=== PATIENT | male | born 1960 | race Caucasian/White ===

== ENCOUNTER 2017-07-19 11:31 | Inpatient (IN) | payer BC, OTHER ==
[2017-07-19] MEDS ORDERED: PHARMACY CONSULT - DOSE _____ XX SCH (12:57)
[2017-07-19] MEDS: NS 1000 ML 1,000 ML IV SCH (13:42)
[2017-07-19] MEDS: DILAUDID INJ IVP PRN ×3 (14:07→22:49)
[2017-07-19 14:18] LABS: BASOPHILS # (AUTO) 0.1 X10^3/uL (0.0-0.1); BASOPHILS % (AUTO) 0.9 % (0.2-1.0); EOSINOPHILS # (AUTO) 0.5 x10^3/uL (0.0-0.2); EOSINOPHILS % (AUTO) 4.8 % (0.9-2.9); HEMATOCRIT 45.3 % (42.0-54.0); HEMOGLOBIN 15.5 g/dL (13.5-18.0); LYMPHOCYTES # (AUTO) 2.4 X10^3/uL (1.3-2.9); LYMPHOCYTES % (AUTO) 24.4 % (21.0-51.0); MEAN CORPUSCULAR HEMOGLOBIN 30.6 pg (27.0-34.0); MEAN CORPUSCULAR HGB CONC 34.1 g/dL (33.0-35.0); MEAN CORPUSCULAR VOLUME 89.8 fL (80.0-100.0); MEAN PLATELET VOLUME 7.9 fL (7.4-11.0); MONOCYTES # (AUTO) 0.5 x10^3/uL (0.3-0.8); MONOCYTES % (AUTO) 5.5 % (0.0-13.0); NEUTROPHILS # (AUTO) 6.2 x10^3/uL (2.2-4.8); NEUTROPHILS % (AUTO) 64.4 % (42.0-75.0); PLATELET COUNT 296 X10^3/uL (150.0-450.0); RED BLOOD COUNT 5.04 X10^6/uL (4.7-6.0); RED CELL DISTRIBUTION WIDTH 13.5 % (11.6-16.5); WHITE BLOOD COUNT 9.6 X10^3/uL (3.6-10.0)
[2017-07-19 14:35] LABS: ALANINE AMINOTRANSFERASE 21 Units/L (12-78); ALBUMIN 3.4 g/dL (3.4-5.0); ALKALINE PHOSPHATASE 95 Units/L (46-116); ASPARTATE AMINO TRANSFERASE 18 Units/L (15-37); BLOOD UREA NITROGEN 11 mg/dL (7-18); CALCIUM 8.9 mg/dL (8.5-10.1); CARBON DIOXIDE 27.4 mmol/L (21-32); CHLORIDE 106 mmol/L (98-107); CREATININE 1.34 mg/dL (0.70-1.30); SODIUM 139 mmol/L (136-145); TOTAL PROTEIN 7.5 g/dL (6.4-8.2); eGFR BLACK RACES > 60 (>60); eGFR NON BLACK RACES 58 (>60)
[2017-07-19 15:15] VITALS: BMI 28.8
[2017-07-19] MEDS ORDERED: FLUVIRIN IM ONE (15:15)
[2017-07-19] MEDS: TORADOL 30 MG VIAL IVP PRN (17:08)
[2017-07-19] MEDS: NICOTINE PATCH TD SCH (17:10)
--- NOTE | 2017-07-19 18:16 | VAS ---
HISTORY: Left lower extremity cellulitis and pain. History of previous pulmonary emboli. IVC filte r. Study: Bilateral lower extremity venous vascular examination: Multiplanar ultrasonographic examinat ion of the venous system of both lower extremities was performed using color, grayscale Doppler with augmentation and compression techniques. Comparison: None Findings: The common femoral veins, superficial femoral veins and popliteal veins are widely patent and show no intraluminal filling defects. The vessels compress easily and show normal phasic flow and augment w ith flexion of the foot. IMPRESSION: 1. No evidence of deep venous thrombosis involving either lower extremity. Reported By:
[2017-07-19] MEDS: VANCOMYCIN 1 GM PREMIX (ADDVANTAGE) 250 ML IV SCH (21:04)
[2017-07-19] MEDS ORDERED: PATIENT'S HOME MEDICATION (Alprazolam [Xanax 1 Mg] 1 TAB) PO PRN (21:43)
[2017-07-19] MEDS ORDERED: PANTOPRAZOLE SODIUM 40 MG PO SCH (21:45)
[2017-07-19] MEDS: XANAX PO PRN (22:53)
[2017-07-20] MEDS: TORADOL 30 MG VIAL IVP PRN ×2 (05:11→15:54)
[2017-07-20] MEDS: NS 1000 ML 1,000 ML IV SCH ×2 (05:14→18:10)
[2017-07-20 06:06] LABS: BASOPHILS % (AUTO) 0.5 % (0.2-1.0); EOSINOPHILS # (AUTO) 0.6 x10^3/uL (0.0-0.2); EOSINOPHILS % (AUTO) 7.4 % (0.9-2.9); HEMATOCRIT 41.1 % (42.0-54.0); LYMPHOCYTES # (AUTO) 2.2 X10^3/uL (1.3-2.9); LYMPHOCYTES % (AUTO) 27.4 % (21.0-51.0); MEAN CORPUSCULAR HEMOGLOBIN 30.6 pg (27.0-34.0); MEAN CORPUSCULAR VOLUME 89.8 fL (80.0-100.0); MEAN PLATELET VOLUME 8.4 fL (7.4-11.0); MONOCYTES # (AUTO) 0.7 x10^3/uL (0.3-0.8); MONOCYTES % (AUTO) 8.5 % (0.0-13.0); NEUTROPHILS # (AUTO) 4.6 x10^3/uL (2.2-4.8); NEUTROPHILS % (AUTO) 56.2 % (42.0-75.0); PLATELET COUNT 277 X10^3/uL (150.0-450.0); RED BLOOD COUNT 4.57 X10^6/uL (4.7-6.0); RED CELL DISTRIBUTION WIDTH 13.4 % (11.6-16.5); WHITE BLOOD COUNT 8.2 X10^3/uL (3.6-10.0)
[2017-07-20 06:07] LABS: ALANINE AMINOTRANSFERASE 17 Units/L (12-78); ALBUMIN 2.9 g/dL (3.4-5.0); ALKALINE PHOSPHATASE 77 Units/L (46-116); ASPARTATE AMINO TRANSFERASE 19 Units/L (15-37); BLOOD UREA NITROGEN 15 mg/dL (7-18); CALCIUM 8.6 mg/dL (8.5-10.1); CARBON DIOXIDE 26.2 mmol/L (21-32); CHLORIDE 105 mmol/L (98-107); COR CA(FOR HYPOALB) 9.5 mg/dL (8.5-10.1); CREATININE 1.63 mg/dL (0.70-1.30); SODIUM 137 mmol/L (136-145); eGFR BLACK RACES 56 (>60); eGFR NON BLACK RACES 46 (>60)
[2017-07-20 06:18] LABS: TOTAL PROTEIN 6.6 g/dL (6.4-8.2)
[2017-07-20] MEDS: DILAUDID INJ IVP PRN ×4 (08:48→22:40)
[2017-07-20] MEDS: PROTONIX TAB 40 MG PO SCH (08:48)
[2017-07-20] MEDS: NORVASC TAB 10 MG PO SCH (08:48)
[2017-07-20] MEDS: FOLIC ACID TAB 1 MG PO SCH (08:48)
[2017-07-20] MEDS: NICOTINE PATCH TD SCH (08:49)
[2017-07-20] MEDS: NEURONTIN CAP 300 MG PO SCH ×2 (08:59→20:30)
[2017-07-20] MEDS: VANCOMYCIN 1 GM PREMIX (ADDVANTAGE) 250 ML IV SCH ×2 (08:59→20:31)
[2017-07-20] MEDS: PHENERGAN INJ 25 MG IV PRN ×2 (10:32→20:31)
[2017-07-20] MEDS: XANAX PO PRN (13:15)
[2017-07-20] MEDS: SOMA TAB 350 MG PO PRN (15:59)
[2017-07-20] MEDS: PEPCID TAB 20 MG PO SCH (20:30)
[2017-07-20] MEDS: LIPITOR TAB 40 MG PO SCH (20:30)
[2017-07-20] MEDS: DESYREL PO SCH (20:31)
[2017-07-20] MEDS ORDERED: PATIENT'S HOME MEDICATION (Trazodone Hcl [Trazodone Hcl] 150 MG) PO SCH (21:00)
[2017-07-21] MEDS: DILAUDID INJ IVP PRN ×5 (03:19→21:14)
[2017-07-21] MEDS: NS 1000 ML 1,000 ML IV SCH ×2 (05:48→17:18)
[2017-07-21] MEDS: XANAX PO PRN (07:02)
[2017-07-21] MEDS: NICOTINE PATCH TD SCH (08:13)
[2017-07-21] MEDS: PROTONIX TAB 40 MG PO SCH (08:13)
[2017-07-21] MEDS: SOMA TAB 350 MG PO PRN ×2 (08:13→16:14)
[2017-07-21] MEDS: NORVASC TAB 10 MG PO SCH (08:13)
[2017-07-21] MEDS: NEURONTIN CAP 300 MG PO SCH ×2 (08:14→21:13)
[2017-07-21] MEDS: FOLIC ACID TAB 1 MG PO SCH (08:14)
[2017-07-21] MEDS: VANCOMYCIN 1 GM PREMIX (ADDVANTAGE) 250 ML IV SCH ×2 (08:14→22:20)
--- NOTE | 2017-07-21 08:32 | DR.H&P ---
H&P - History & Physical for Day of: H&P Date: 07/19/17 - Chief Complaint Chief Complaint: LEFT LOWER EXTREMITY CELLULITIS - Allergies Allergies/Adverse Reactions: Allergies Allergy/AdvReac Type Severity Reaction Status Date / Time codeine Allergy Verified 07/19/17 14:54 - History of Present Illness History of Present Illness: is a 57 year old patient of ours who was is a direct admission from our office. He presented to our office today with complaints of redness and severe pain to the left lower extremity. On examination, left lower extremity is noted with 2+ pitting edema, two draining wounds, and moderate erythema. Patient denies a recent injury to the extremity. We planned to admit patient for further treatment and evaluation of cellulitis and rule out DVT. He was started on Normal saline at KVO, Vancomycin 1gm IV Q12H, Dilaudid 2-4mg IVP Q4H PRN severe pain, Toradol 30 MG Q6H PRN pain. On admission, A CBC, CMP, and bilateral venous doppler were obtained. Abnormal lab values include the following: creatinine 1.34, GFR 58, A/G ratio 0.8. A wound culture was obtained and results are pending. Gram stain reports growth of Gram Positive Cocci. Venous doppler reported no evidence of deep venous thrombosis involving either lower extremity. We plan to follow up with AM labs and continue to monitor patient. - Past Medical History Past Medical History: Hypertension, Depression, Anxiety, GERD, Arthritis Additional Medical History: Hx of DVT/PE, Hx GI Ulcer - Past Surgical History Surgical History: Ortho Surgery Additional Surgical History: Left and Right Shoulder, Back, Left Leg, IVC Filter Left Leg - Family History Family Medical History: Diabetes Mellitus, [place], Coronary Artery Disease - Social History Does patient currently use any type of tobacco product: Yes Have you used tobacco products in the last 12 months: Yes Type of Tobacco Use: Cigarettes Does any household member use tobacco: Yes Alcohol Use: Occasionally Drug Use: None - Medications Home Medications: Alprazolam [Xanax 1 mg] 1 tab PO BID PRN 07/19/17 [History Confirmed 07/19/17] Amlodipine Besylate 10 mg PO DAILY 07/19/17 [History Confirmed 07/19/17] Atorvastatin Calcium 40 mg PO HS 07/19/17 [History Confirmed 07/19/17] Folic Acid 1 mg PO DAILY 07/19/17 [History Confirmed 07/19/17] Gabapentin [Neurontin Cap 300 mg] 300 mg PO BID 07/19/17 [History Confirmed 11/03] Phentermine HCl [Adipex-P] 37.5 mg PO DAILY 07/19/17 [History Confirmed 07/19/17 ] Sildenafil Citrate [Viagra] 100 mg PO . DIRECTED PRN 07/19/17 [History Confirmed 07/19/17] Trazodone HCl 150 mg PO HS 07/19/17 [History Confirmed 07/19/17] - Review of Systems Constitutional: No Symptoms Reported. denies: Fever, Chills, Weakness Eyes: No Symptoms Reported. denies: Vision Change, Conjunctivae Inflammation, Eyelid Inflammation, Redness ENT: No Symptoms Reported. denies: Ear Pain, Ear Discharge, Nose Discharge, Nose Congestion, Mouth Swelling, Throat Pain, Throat Swelling Respiratory: No Symptoms Reported. denies: Cough, Shortness of Breath, Hemoptysis, Sputum, Wheezing Cardiovascular: Edema. denies: Chest Pain, Palpitations, Paroxysmal Noc. Dyspnea, Light Headedness Gastrointestinal: No Symptoms Reported. denies: Nausea, Vomiting, Abdominal Pain, Diarrhea, Constipation, Melena, Hematochezia Genitourinary: No Symptoms Reported Musculoskeletal: Leg Pain (LEFT LEG PAIN ) Skin: Wound (LEFT LEG OPEN WOUND, ERRYTHEMA ) Neurological: No Symptoms Reported. denies: Weakness, Confusion, Seizures - Physical Exam Vital Signs: Temperature 97.8 F Pulse Rate [Right Radial] 77 Respiratory Rate 20 Blood Pressure [Right Arm] 136/80 Blood Pressure [Left Arm] 140/85 Blood Pressure 130/83 O2 Sat by Pulse Oximetry 99 Oriented: Normal Eyes: Normal. negative: Blurred Vision, Diplopia, Discharge, Photophobia Ear: Normal. negative: Abrasion, Laceration Nose: Normal Throat: Normal Respiratory: Clear Throughout Cardiovascular: Edema. negative: Murmur : Normal. negative: Dysuria, Hematuria, Testicular Pain, Bleeding Auscultation: Bowel Sounds: Normal Palpation: Normal Tenderness: Normal. negative: Rebound, Guarding, Rigidity Skin: Red, Tender (LEFT LEG OPEN WOUND, EDEMA, ERRYTHEMA ), Wound Musculoskeletal: Left, Leg, Swelling, Tender Psychiatric: Normal Mood Description: Calm Affect: Normal Speech Pattern: Clear - Assessment/Plan (1) Left leg cellulitis Status: Acute Plan: WOUND CULTURE, VANCOMYCIN 1GM IV BID, WOUND CARE, CHECK VENOUS DOPPLER TO R/O DVT, CONTINUE TO MONITOR
[2017-07-21 08:45] LABS: BASOPHILS # (AUTO) 0.1 X10^3/uL (0.0-0.1); BASOPHILS % (AUTO) 0.9 % (0.2-1.0); EOSINOPHILS # (AUTO) 0.5 x10^3/uL (0.0-0.2); EOSINOPHILS % (AUTO) 5.8 % (0.9-2.9); HEMATOCRIT 46.6 % (42.0-54.0); HEMOGLOBIN 15.5 g/dL (13.5-18.0); LYMPHOCYTES % (AUTO) 23.4 % (21.0-51.0); MEAN CORPUSCULAR HEMOGLOBIN 30.1 pg (27.0-34.0); MEAN CORPUSCULAR HGB CONC 33.2 g/dL (33.0-35.0); MEAN CORPUSCULAR VOLUME 90.7 fL (80.0-100.0); MEAN PLATELET VOLUME 7.8 fL (7.4-11.0); MONOCYTES # (AUTO) 0.5 x10^3/uL (0.3-0.8); MONOCYTES % (AUTO) 5.8 % (0.0-13.0); NEUTROPHILS # (AUTO) 5.6 x10^3/uL (2.2-4.8); NEUTROPHILS % (AUTO) 64.1 % (42.0-75.0); PLATELET COUNT 267 X10^3/uL (150.0-450.0); RED BLOOD COUNT 5.14 X10^6/uL (4.7-6.0); RED CELL DISTRIBUTION WIDTH 13.7 % (11.6-16.5); WHITE BLOOD COUNT 8.7 X10^3/uL (3.6-10.0)
[2017-07-21 08:57] LABS: CREATININE 1.35 mg/dL (0.70-1.30); VANCOMYCIN,TROUGH 12.4 ug/mL (15-20)
[2017-07-21 08:59] LABS: ALANINE AMINOTRANSFERASE 20 Units/L (12-78); ALKALINE PHOSPHATASE 95 Units/L (46-116); ASPARTATE AMINO TRANSFERASE 18 Units/L (15-37); BLOOD UREA NITROGEN 18 mg/dL (7-18); CALCIUM 8.6 mg/dL (8.5-10.1); CARBON DIOXIDE 26.3 mmol/L (21-32); CHLORIDE 105 mmol/L (98-107); COR CA(FOR HYPOALB) 9.4 mg/dL (8.5-10.1); COR NA(FOR HYPERGLY) 140 mmol/L (136-145); CREATININE 1.36 mg/dL (0.70-1.30); SODIUM 140 mmol/L (136-145); TOTAL PROTEIN 6.7 g/dL (6.4-8.2); eGFR BLACK RACES > 60 (>60); eGFR NON BLACK RACES 57 (>60)
[2017-07-21] MEDS: PHENERGAN INJ 25 MG IV PRN ×3 (09:00→21:13)
[2017-07-21] MEDS: DESYREL PO SCH (21:13)
[2017-07-21] MEDS: LIPITOR TAB 40 MG PO SCH (21:14)
[2017-07-21] MEDS: PEPCID TAB 20 MG PO SCH (21:14)
[2017-07-22] MEDS: DILAUDID INJ IVP PRN ×4 (02:23→20:50)
[2017-07-22 06:10] LABS: BASOPHILS % (AUTO) 0.5 % (0.2-1.0); EOSINOPHILS # (AUTO) 0.6 x10^3/uL (0.0-0.2); EOSINOPHILS % (AUTO) 6.2 % (0.9-2.9); HEMATOCRIT 45.7 % (42.0-54.0); HEMOGLOBIN 15.5 g/dL (13.5-18.0); LYMPHOCYTES # (AUTO) 2.2 X10^3/uL (1.3-2.9); LYMPHOCYTES % (AUTO) 23.6 % (21.0-51.0); MEAN CORPUSCULAR HEMOGLOBIN 30.6 pg (27.0-34.0); MEAN CORPUSCULAR VOLUME 90.2 fL (80.0-100.0); MEAN PLATELET VOLUME 7.9 fL (7.4-11.0); MONOCYTES # (AUTO) 0.8 x10^3/uL (0.3-0.8); MONOCYTES % (AUTO) 9.1 % (0.0-13.0); NEUTROPHILS # (AUTO) 5.7 x10^3/uL (2.2-4.8); NEUTROPHILS % (AUTO) 60.6 % (42.0-75.0); PLATELET COUNT 276 X10^3/uL (150.0-450.0); RED BLOOD COUNT 5.07 X10^6/uL (4.7-6.0); RED CELL DISTRIBUTION WIDTH 13.3 % (11.6-16.5); WHITE BLOOD COUNT 9.3 X10^3/uL (3.6-10.0)
[2017-07-22 06:24] LABS: ALANINE AMINOTRANSFERASE 26 Units/L (12-78); ALBUMIN 3.2 g/dL (3.4-5.0); ALKALINE PHOSPHATASE 100 Units/L (46-116); ASPARTATE AMINO TRANSFERASE 22 Units/L (15-37); BLOOD UREA NITROGEN 15 mg/dL (7-18); CALCIUM 8.5 mg/dL (8.5-10.1); CARBON DIOXIDE 26.2 mmol/L (21-32); CHLORIDE 105 mmol/L (98-107); COR CA(FOR HYPOALB) 9.1 mg/dL (8.5-10.1); CREATININE 1.32 mg/dL (0.70-1.30); SODIUM 139 mmol/L (136-145); eGFR BLACK RACES > 60 (>60); eGFR NON BLACK RACES 59 (>60)
[2017-07-22] MEDS: NS 1000 ML 1,000 ML IV SCH ×2 (06:38→20:52)
[2017-07-22] MEDS ORDERED: MAG-OX TAB PO PRN (07:47)
[2017-07-22] MEDS ORDERED: MAGNESIUM SULFATE 1 GM/100 mL PREMIX 1 GM/100 ML BAG IV PRN (07:47)
[2017-07-22] MEDS ORDERED: K-LYTE EFFERVESCENT PO PRN (07:47)
[2017-07-22] MEDS ORDERED: K-RIDER 10 MEQ/NS 100 ML 10 MEQ/100 ML BAG IV PRN (07:47)
[2017-07-22] MEDS ORDERED: NEURONTIN CAP 100 MG PO ONE (08:11)
[2017-07-22] MEDS ORDERED: COLACE CAP 100 MG PO PRN (08:56)
[2017-07-22] MEDS ORDERED: MILK OF MAGNESIA PO PRN (08:56)
[2017-07-22] MEDS: NICOTINE PATCH TD SCH (08:56)
[2017-07-22] MEDS: PROTONIX TAB 40 MG PO SCH (08:58)
[2017-07-22] MEDS: NEURONTIN CAP 300 MG PO SCH ×2 (08:58→20:49)
[2017-07-22] MEDS: NORVASC TAB 10 MG PO SCH (08:58)
[2017-07-22] MEDS: VANCOMYCIN 1 GM PREMIX (ADDVANTAGE) 250 ML IV SCH ×2 (08:59→20:51)
[2017-07-22] MEDS: PHENERGAN INJ 25 MG IV PRN ×2 (09:05→20:51)
[2017-07-22] MEDS: FOLIC ACID TAB 1 MG PO SCH (09:06)
[2017-07-22] MEDS: SOMA TAB 350 MG PO PRN ×2 (11:26→20:49)
[2017-07-22] MEDS: XANAX PO PRN ×2 (11:26→23:22)
[2017-07-22] MEDS: PEPCID TAB 20 MG PO SCH (20:49)
[2017-07-22] MEDS: LIPITOR TAB 40 MG PO SCH (20:50)
[2017-07-22] MEDS: DESYREL PO SCH (20:50)
[2017-07-22] MEDS: TORADOL 30 MG VIAL IVP PRN (23:22)
[2017-07-23 05:25] LABS: BASOPHILS # (AUTO) 0.1 X10^3/uL (0.0-0.1); BASOPHILS % (AUTO) 0.7 % (0.2-1.0); EOSINOPHILS # (AUTO) 0.6 x10^3/uL (0.0-0.2); EOSINOPHILS % (AUTO) 7.6 % (0.9-2.9); HEMATOCRIT 41.1 % (42.0-54.0); LYMPHOCYTES # (AUTO) 2.1 X10^3/uL (1.3-2.9); LYMPHOCYTES % (AUTO) 28.2 % (21.0-51.0); MEAN CORPUSCULAR HEMOGLOBIN 30.3 pg (27.0-34.0); MEAN CORPUSCULAR VOLUME 89.2 fL (80.0-100.0); MEAN PLATELET VOLUME 8.4 fL (7.4-11.0); MONOCYTES # (AUTO) 0.8 x10^3/uL (0.3-0.8); MONOCYTES % (AUTO) 9.9 % (0.0-13.0); NEUTROPHILS # (AUTO) 4.1 x10^3/uL (2.2-4.8); NEUTROPHILS % (AUTO) 53.6 % (42.0-75.0); PLATELET COUNT 263 X10^3/uL (150.0-450.0); RED BLOOD COUNT 4.61 X10^6/uL (4.7-6.0); WHITE BLOOD COUNT 7.6 X10^3/uL (3.6-10.0)
[2017-07-23 05:34] LABS: ALANINE AMINOTRANSFERASE 33 Units/L (12-78); ALBUMIN 2.7 g/dL (3.4-5.0); ALKALINE PHOSPHATASE 90 Units/L (46-116); ASPARTATE AMINO TRANSFERASE 27 Units/L (15-37); BLOOD UREA NITROGEN 16 mg/dL (7-18); CALCIUM 8.5 mg/dL (8.5-10.1); CARBON DIOXIDE 26.8 mmol/L (21-32); CHLORIDE 106 mmol/L (98-107); COR CA(FOR HYPOALB) 9.5 mg/dL (8.5-10.1); CREATININE 1.38 mg/dL (0.70-1.30); MAGNESIUM 1.9 mg/dL (1.7-2.9); SODIUM 139 mmol/L (136-145); TOTAL PROTEIN 6.1 g/dL (6.4-8.2); eGFR BLACK RACES > 60 (>60); eGFR NON BLACK RACES 56 (>60)
[2017-07-23 08:25] LABS: CREATININE 1.35 mg/dL (0.70-1.30); VANCOMYCIN,TROUGH 15.5 ug/mL (15-20)
[2017-07-23] MEDS: FOLIC ACID TAB 1 MG PO SCH (09:10)
[2017-07-23] MEDS: NORVASC TAB 10 MG PO SCH (09:10)
[2017-07-23] MEDS: NEURONTIN CAP 300 MG PO SCH (09:10)
[2017-07-23] MEDS: PROTONIX TAB 40 MG PO SCH (09:10)
[2017-07-23] MEDS: NICOTINE PATCH TD SCH (09:12)
--- NOTE | 2017-07-23 10:03 | PCM.PROG ---
Progress Note - Progress Note for Day of Date: 07/20/17 - Past Medical Family Social History Past Med/Fam/Surg Hx: No changes since H&P Allergies: Allergies codeine Allergy (Verified 07/19/17 14:54) - Review of Systems ROS: No change since H&P - Vital Signs and I&O's Vital Signs: Temperature 97.8 F Pulse Rate [Right Radial] 65 Respiratory Rate 16 Blood Pressure [Right Arm] 153/97 Blood Pressure [Left Arm] 140/85 Blood Pressure 130/83 O2 Sat by Pulse Oximetry 94 Intake and Output: Intake & Output 07/20/17 07/21/17 07/22/17 07/23/17 12:59 12:59 11:59 11:59 Intake Total 3290 Output Total Balance 3290 - Physical Exam Oriented: Normal Eyes: Normal Ear: Normal Nose: Normal Throat: Normal Respiratory: Normal Cardiovascular: Normal : Normal Auscultation: Bowel Sounds: Normal Palpation: Normal Tenderness: Normal Skin: Red, Tender (LEFT LOWER LEG WITH OPEN WOUND, EDEMA, AND ERRYTHEMA), Wound Musculoskeletal: Left, Leg, Swelling, Tender Psychiatric: Normal Mood Description: Calm Affect: Normal Speech Pattern: Clear, Appropriate - Laboratory and Diagnostics Result Diagrams: 07/23/17 04:25 07/23/17 08:05 Labs: 07/19/17 14:10 Leg - Left Gram Stain - Final 07/19/17 14:10 Leg - Left Wound Culture - Final Staphylococcus Aureus 07/19/17 14:02 Blood Blood Culture - Preliminary 07/19/17 13:56 Blood Blood Culture - Preliminary Laboratory WBC 7.6 X10^3/uL (3.6-10.0) 07/23/17 04:25 RBC 4.61 X10^6/uL (4.7-6.0) L 07/23/17 04:25 Hgb 14.0 g/dL (13.5-18.0) 07/23/17 04:25 Hct 41.1 % (42.0-54.0) L 07/23/17 04:25 MCV 89.2 fL (80.0-100.0) 07/23/17 04:25 MCH 30.3 pg (27.0-34.0) 07/23/17 04:25 MCHC 34.0 g/dL (33.0-35.0) 07/23/17 04:25 RDW 13.0 % (11.6-16.5) 07/23/17 04:25 Plt Count 263 X10^3/uL (150.0-450.0) 07/23/17 04:25 MPV 8.4 fL (7.4-11.0) 07/23/17 04:25 Neut % 53.6 % (42.0-75.0) 07/23/17 04:25 Lymph % 28.2 % (21.0-51.0) 07/23/17 04:25 Juncos % 9.9 % (0.0-13.0) 07/23/17 04:25 Eos % 7.6 % (0.9-2.9) H 07/23/17 04:25 Baso % 0.7 % (0.2-1.0) 07/23/17 04:25 Neut # 4.1 x10^3/uL (2.2-4.8) 07/23/17 04:25 Lymph # 2.1 X10^3/uL (1.3-2.9) 07/23/17 04:25 Juncos # 0.8 x10^3/uL (0.3-0.8) 07/23/17 04:25 Eos # 0.6 x10^3/uL (0.0-0.2) H 07/23/17 04:25 Baso # 0.1 X10^3/uL (0.0-0.1) 07/23/17 04:25 Absolute Nucleated RBC 0.0 /100WBC 07/23/17 04:25 Sodium 139 mmol/L (136-145) 07/23/17 04:25 Corrected Sodium TNP 07/23/17 04:25 Potassium 4.0 mmol/L (3.5-5.1) 07/23/17 04:25 Chloride 106 mmol/L (98-107) 07/23/17 04:25 Carbon Dioxide 26.8 mmol/L (21-32) 07/23/17 04:25 BUN 16 mg/dL (7-18) 07/23/17 04:25 Creatinine 1.35 mg/dL (0.70-1.30) H 07/23/17 08:05 Est GFR (MDRD) Af Amer > 60 (>60) 07/23/17 04:25 Est GFR (MDRD) Non-Af 56 (>60) L 07/23/17 04:25 Glucose 106 mg/dL (65-99) H 07/23/17 04:25 Calcium 8.5 mg/dL (8.5-10.1) 07/23/17 04:25 Corrected Calcium 9.5 mg/dL (8.5-10.1) 07/23/17 04:25 Magnesium 1.9 mg/dL (1.7-2.9) 07/23/17 04:25 Total Bilirubin 0.20 mg/dL (0.2-1.0) 07/23/17 04:25 AST 27 Units/L (15-37) 07/23/17 04:25 ALT 33 Units/L (12-78) 07/23/17 04:25 Alkaline Phosphatase 90 Units/L (46-116) 07/23/17 04:25 Total Protein 6.1 g/dL (6.4-8.2) L 07/23/17 04:25 Albumin 2.7 g/dL (3.4-5.0) L 07/23/17 04:25 Globulin 3.4 g/dL (2.5-4.5) 07/23/17 04:25 Albumin/Globulin Ratio 0.8 Ratio (1.1-2.1) L 07/23/17 04:25 Vancomycin Trough 15.5 ug/mL (15-20) 07/23/17 08:05 - Plan (1) Left leg cellulitis Status: Acute Plan: CONTINUE VANCOMYCIN 1GM IV BID, CONTINUE WOUND CARE, CONTINUE TO MONITOR (2) Tobacco dependence syndrome Status: Chronic Plan: NICOTOINE PATCH DAILY, CONTINUE TO MONITOR (3) Essential hypertension Status: Chronic Plan: CONTINUE NORVASC, CONTINUE TO MONITOR (4) Gastroesophageal reflux disease Status: Chronic Plan: CONTINUE PEPCID, CONTINUE PROTONIX, CONTINUE TO MONITOR (5) Generalized anxiety disorder Status: Chronic Plan: CONTINUE XANAX, CONTINUE TO MONITOR (6) Hyperlipidemia Status: Chronic Plan: CONTINUE LIPITOR, CONTINUE TO MONITOR
[2017-07-23] MEDS: VANCOMYCIN 1 GM PREMIX (ADDVANTAGE) 250 ML IV SCH (10:31)
[2017-07-23] MEDS: PHENERGAN INJ 25 MG IV PRN (10:37)
[2017-07-23] MEDS: DILAUDID INJ IVP PRN (10:39)
[2017-07-23 15:27] VITALS: BP 157/92
== END 2017-07-23 12:45 | disposition home or self-care (01) | DRG 603 ==
LOC: MED/SURG 11:31 → OBSVTOIN 07-21 16:00
PROVIDERS: ADMIT Internal Medicine; ATTEND Internal Medicine
PROC: 3E0234Z Introduction of Serum, Toxoid and Vaccine into Muscle, Percutaneous Approach (ICD-10-PCS; principal; 2017-07-19)
DX: L03.116 Cellulitis of left lower limb (principal); R60.0 Localized edema; I10 Essential (primary) hypertension; F41.8 Other specified anxiety disorders; K21.9 Gastro-esophageal reflux disease without esophagitis; M13.89 Other specified arthritis, multiple sites; Z72.0 Tobacco use; E78.2 Mixed hyperlipidemia; F17.200 Nicotine dependence, unspecified, uncomplicated; B95.62 Methicillin resistant Staphylococcus aureus infection as the cause of diseases classified elsewhere
CPT/HCPCS: 36415; 80053; 80202; 82565; 83735; 85025; 87040; 87070; 87075; 87077; 87186; 87205; 90686; 93970; 99231; A4222; G0378; J1170; J1885; J2550; J3370

== ENCOUNTER 2025-04-07 07:58 | Observation (INO) ==
[2025-04-07 08:34] LABS: MEAN PLATELET VOLUME 7.5 fL (7.4-11.0); RED CELL DISTRIBUTION WIDTH 14.0 % (11.6-16.5)
--- NOTE | 2025-04-07 08:34 | EKG ---
Test Reason : chest pain Blood Pressure : */* mmHG Vent. Rate : 59 BPM Atrial Rate : 59 BPM P-R Int : 144 ms QRS Dur : 86 ms QT Int : 438 ms P-R-T Axes : 26 35 52 degrees QTc Int : 433 ms Sinus bradycardia with sinus arrhythmia prominent voltage Otherwise normal ECG No previous ECGs available Confirmed by Cam Seaman MD ([id number]) on 04/07/2025 10:36:28 AM Referred By: Confirmed By: Cam Seaman MD
[2025-04-07 08:40] LABS: INR 1.10 (0.8-1.3)
[2025-04-07 08:47] LABS: COR CA(FOR HYPOALB) 10.6 mg/dL (8.5-10.1); COR NA(FOR HYPERGLY) 136 mmol/L (136-145); CREATININE 1.35 mg/dL (0.70-1.30); eGFR NON BLACK RACES 56 (>60)
[2025-04-07] MEDS: MAG-OX TAB PO ONE (09:15)
--- NOTE | 2025-04-07 09:40 | CT ---
EXAM: CT chest without contrast HISTORY: Chest pain, shortness of breath, smoker TECHNIQUE: Axial noncontrast images with coronal and sagittal reformats. Dose reduction procedures were used with mA/kv adjusted for body size. This examination is limited due to the lack of intravenous contrast. The examination was performed unenhanced at the sole direction of the ordering caregiver. Radiology was afforded no input into the method of performance of this examination. COMPARISON: No prior chest CT; no screening plain chest x-ray obtained. The reason for this omission is unclear. FINDINGS: Abnormal lymphadenopathy is incidentally noted underlying the right sternocleidomastoid muscle. Nodes measure 1.5 by 0.9 cm and 1.3 by 0.94 cm. These could be reactive, infectious, granulomatous, or neoplastic in origin. Examination of the mediastinum demonstrated no evidence for abnormal mediastinal or abnormal hilar adenopathy but only to the limitations of an unenhanced examination. There is mild dilatation of the ascending thoracic aorta maximum AP diameter 4 cm, maximum transverse diameter 4.1 cm. Calcific atherosclerotic changes present in the arch. Arch and descending aorta are normal in caliber. No pleural effusions are identified. No chest wall or axillary abnormality is identified. Those portions of the upper abdominal organs visualized appeared within normal limits to the limitations of an unenhanced examination with the exception of a 2.5 mm nonobstructing right upper pole renal calculus and a very large partially visualized cystic lesion in the left upper quadrant measuring 12 x 13.4 cm. This may represent a very large benign renal cyst however it was only partially visualized. CAVAL FILTER. There is a 50% compression fracture of T6 age indeterminate. There is a mild central compression fracture the superior endplate of T11 of indeterminate age and possibly related to some benign hemangiomatous change in the vertebral body. There is a question of some small lytic lesions in C7, T1 and T2. Findings could indicate metastatic disease or possibly multiple myeloma. Correlation with nuclear medicine bone scan is recommended as is serum protein electrophoresis. Examination of the lung forrester demonstrated pleural-parenchymal thickening in the right lung apex with some blebs present. Lungs are mildly hyperinflated. No alveolar infiltrates, areas of consolidation, peribronchial thickening, or bronchiectasis identified. Best visualized on axial series 3, image 46 and coronal series 6, image 11 is a 7.6 x 8.1 x 5.5 mm noncalcified left upper lobe pulmonary nodule. This could be granulomatous or neoplastic in origin. PET-CT would be of further diagnostic value in excluding malignancy however if PET-CT is negative for malignancy close CT follow-up in 4-6 months will be required as this nodule is at the lower limits for detection with PET. No other noncalcified pulmonary nodules of significance identified. IMPRESSION: Lungs are mildly hyperinflated but without acute pulmonary infiltrates 7.6 x 8.1 x 5.5 mm left upper lobe pulmonary nodule. Neoplasm must be excluded. PET-CT would be of further diagnostic value. However, it should be noted that if PET-CT is negative for malignancy then close CT follow-up with a repeat CT in 4-6 months is recommended as this nodule is at the lower limits for detection with PET-CT. Pulmonary consultation would seem indicated. Mild dilatation of the ascending thoracic aorta maximum AP diameter 4 cm, maximum transverse diameter 4.2 cm Questionable tiny lytic lesions in C7 T1 and T2 for which further evaluation with nuclear medicine bone scan to screen for metastatic disease and serum protein electrophoresis discrete for multiple myeloma should be considered. 2.5 mm nonobstructing right upper pole renal calculus Large left upper quadrant partially visualized cystic lesion possibly a large benign renal cyst. Other etiologies not excluded. Incidental note is made of abnormal mildly enlarged lymph nodes underlying the right sternocleidomastoid muscle in the lower neck. These could be reactive, infectious, granulomatous or neoplastic in origin. THIS IS AN ELECTRONICALLY VERIFIED FINAL REPORT 04/07/2025 9:37 AM - Electronically signed by Igor Tripp MD
[2025-04-07] MEDS: LASIX IVP ONE (10:38)
--- NOTE | 2025-04-07 10:58 | DR.GENAD ---
HPI Time Seen Time Seen by Provider: 04/07/25 08:05 PCP Primary Care Physician: andrea HPI Comment HPI Comment: Patient with complaint of weakness, chest pain and dyspnea on exertion over the last couple of weeks. Patient states he also has had an 8 pound weight loss. Patient has difficulty laying flat on his back because he gets more short of breath. Patient states he talked to his PCP and they told him to come into the ER. Complaint/Symptoms Chief Complaint:: Patient states for the last couple of weeks he has had increase weakness and chest pain around the left breast that comes and goes when it comes it is a garcia pain that radiates into his back. Patient states in the past 2 wks he has lost 8lbs and is steady losing weight. Patient noted to have pain right now to the left chest wall. unable to lay flat without getting sob. COVID-19 Coronavirus risk:travel/contact w/high risk person: No Has patient experienced Coronavirus symptoms: No Source History Provided: Patient Mode of Arrival Mode of Arrival: Ambulatory Timing Onset of Chief Complaint: 04/07/25 PMH PMH Past Medical History: Yes Past Medical History: Anxiety, Arthritis, Depression, Dyslipidemia, GERD and Hypertension Past Surgical History: Yes Surgical History: Ortho Surgery Past Surgical History Comment: left leg, back sx Family History History of Family Medical Conditions: Yes Family Medical History: Diabetes Mellitus, [place] and Coronary Artery Disease Social History Does patient currently use any type of tobacco product: Yes Have you used tobacco products in the last 12 months: Yes Type of Tobacco Use: Cigarettes Does any household member use tobacco: Yes Alcohol Use: Occasionally Do you use any recreational Drugs:: No Lives With: Family Lives Where: Home Travel Risk Coronavirus risk:travel/contact w/high risk person: No Has patient experienced Coronavirus symptoms: No Infectious screening In the last 2 months have you had wt loss of >10#?: NO Have you had fever, night sweats or hemotysis?: No Have you traveled outside the country in the last 6 months?: No Isolation: Standard ROS Review of Systems Constitutional: No Symptoms Reported Eyes: No Symptoms Reported ENTM: No Symptoms Reported Respiratoy: See HPI and Short of Breath; negative Wheezing Cardiovascular: See HPI and Edema; negative Palpitations Gastrointestinal/Abdominal: No Symptoms Reported Genitourinary: No Symptoms Reported Neurological: No Symptoms Reported Musculoskeletal: No Symptoms Reported Integumentary: No Symptoms Reported Hematologic/Lymphatic: No Symptoms Reported Endocrine: No Symptoms Reported Psychiatric: No Symptoms Reported All Other Systems: Reviewed and Negative PE Vital Signs Vitals: Vital Signs Temperature 98.3 F Pulse Rate 67 Pulse Rate 57 Pulse Rate 59 Pulse Rate 59 Pulse Rate 63 Pulse Rate 54 Pulse Rate 54 Pulse Rate 55 Pulse Rate 49 Pulse Rate 56 Pulse Rate 59 Pulse Rate 66 Pulse Rate 67 Pulse Rate 78 Pulse Rate 74 Respiratory Rate 28 Respiratory Rate 19 Respiratory Rate 18 Respiratory Rate 33 Respiratory Rate 25 Respiratory Rate 20 Respiratory Rate 17 Respiratory Rate 12 Respiratory Rate 10 Respiratory Rate 14 Respiratory Rate 15 Respiratory Rate 20 Respiratory Rate 22 Blood Pressure 116/70 Blood Pressure 115/69 Blood Pressure 115/69 Blood Pressure 115/69 Blood Pressure 126/61 Blood Pressure 144/73 Blood Pressure 144/73 O2 Sat by Pulse Oximetry 100 O2 Sat by Pulse Oximetry 99 O2 Sat by Pulse Oximetry 99 O2 Sat by Pulse Oximetry 99 O2 Sat by Pulse Oximetry 98 O2 Sat by Pulse Oximetry 99 O2 Sat by Pulse Oximetry 98 O2 Sat by Pulse Oximetry 97 O2 Sat by Pulse Oximetry 98 O2 Sat by Pulse Oximetry 98 O2 Sat by Pulse Oximetry 98 O2 Sat by Pulse Oximetry 99 O2 Sat by Pulse Oximetry 99 O2 Sat by Pulse Oximetry 99 O2 Sat by Pulse Oximetry 99 General Limitations: No Limitations General Appearance: Alert and In No Apparent Distress Head Head Exam: Normal Inspection Eyes Eye exam: Normal Appearance ENT ENT Exam: Normal Exam External Ear Exam: Normal External Inspection TM/Canal Exam: Bilateral: Normal Nose Exam: Normal Nose Exam Mouth Exam: Normal Inspection Throat Exam: Normal Inspection Neck Neck Exam: Normal Inspection Chest Chest Inspection: Normal Inspection Respiratory Respiratory Exam: negative Respiratory Distress Respiratory Exam: Bilateral: Crackles (Mild on bases) Cardiovascular Cardiovascular Exam: Regular Rate and Normal Rhythm Abdominal Exam Abdominal Exam: Normal Inspection, Normal Bowel Sounds and Soft Extremities Extremities Exam: Normal Inspection Back Back Exam: Normal Inspection Neurologic Neurological Exam: Alert and Oriented X3 Psychiatric Psychiatric Exam: Normal Affect and Normal Mood Skin Skin Exam: Warm, Dry, Intact and Normal Color COURSE Treatment Treatment: Discussed results of workup with patient. Discussed CT results and likelihood of cancer with metastasis and the importance of patient following up with his PCP and possibly oncology for further workup. Patient does have some CHF and was given Lasix. Patient's O2 has been stable through the stay without needing oxygen. Given his weakness along with shortness of breath and CHF exacerbation we discussed admission to the hospital. Consultation Called: 10:57 Consultation Comments: Discussed case with Dr. Santos and she is agreeable to admission [facility]OR Labs Reviewed Laboratory Results Reviewed?: Yes 04/07/25 08:05 04/07/25 08:16 Laboratory: WBC 8.6 X10^3/uL (3.6-10.0) 04/07/25 08:05 RBC 4.50 X10^6/uL (4.7-6.0) L 04/07/25 08:05 Hgb 12.1 g/dL (13.5-18.0) L 04/07/25 08:05 Hct 36.7 % (42.0-54.0) L 04/07/25 08:05 MCV 81.6 fL (80.0-100.0) 04/07/25 08:05 MCH 27.0 pg (27.0-34.0) 04/07/25 08:05 MCHC 33.0 g/dL (33.0-35.0) 04/07/25 08:05 RDW 14.0 % (11.6-16.5) 04/07/25 08:05 Plt Count 387 X10^3/uL (150.0-450.0) 04/07/25 08:05 MPV 7.5 fL (7.4-11.0) 04/07/25 08:05 Neut % (Auto) 72.8 % (42.0-75.0) 04/07/25 08:05 Lymph % (Auto) 12.3 % (21.0-51.0) L 04/07/25 08:05 Bee % (Auto) 9.6 % (0.0-13.0) 04/07/25 08:05 Eos % (Auto) 2.2 % (0.9-2.9) 04/07/25 08:05 Baso % (Auto) 3.1 % (0.2-1.0) H 04/07/25 08:05 Neut # (Auto) 6.2 x10^3/uL (2.2-4.8) H 04/07/25 08:05 Lymph # (Auto) 1.1 X10^3/uL (1.3-2.9) L 04/07/25 08:05 Bee # (Auto) 0.8 x10^3/uL (0.3-0.8) 04/07/25 08:05 Eos # (Auto) 0.2 x10^3/uL (0.0-0.2) 04/07/25 08:05 Baso # (Auto) 0.3 X10^3/uL (0.0-0.1) H 04/07/25 08:05 Absolute Nucleated RBC 0.0 /100WBC 04/07/25 08:05 PT 14.4 SECONDS (11.8-14.3) 04/07/25 08:05 INR Target Range - 04/07/25 08:05 INR 1.10 (0.8-1.3) 04/07/25 08:05 APTT 37.6 SECONDS (22.9-36.5) H 04/07/25 08:05 PTT Comment - 04/07/25 08:05 Sodium 135 mmol/L (136-145) L 04/07/25 08:16 Corrected Sodium 136 mmol/L (136-145) 04/07/25 08:16 Potassium 3.7 mmol/L (3.5-5.1) 04/07/25 08:16 Chloride 100 mmol/L (98-107) 04/07/25 08:16 Carbon Dioxide 26.2 mmol/L (21-32) 04/07/25 08:16 BUN 12 mg/dL (7-18) 04/07/25 08:16 Creatinine 1.35 mg/dL (0.70-1.30) H 04/07/25 08:16 Est GFR (MDRD) Af Amer > 60 (>60) 04/07/25 08:16 Est GFR (MDRD) Non-Af 56 (>60) L 04/07/25 08:16 Glucose 140 mg/dL (65-99) H 04/07/25 08:16 Calcium 9.2 mg/dL (8.5-10.1) 04/07/25 08:16 Corrected Calcium 10.6 mg/dL (8.5-10.1) H 04/07/25 08:16 Magnesium 1.8 mg/dL (2.0-2.9) L 04/07/25 08:16 Total Bilirubin 0.50 mg/dL (0.2-1.0) 04/07/25 08:16 AST 19 Units/L (15-37) 04/07/25 08:16 ALT 15 Units/L (12-78) 04/07/25 08:16 Alkaline Phosphatase 161 Units/L (46-116) H 04/07/25 08:16 Creatine Kinase 49 Units/L (39-308) 04/07/25 08:16 Troponin I High Sens 4.8 ng/L (4.0-60.0) 04/07/25 10:05 B-Natriuretic Peptide 538 pg/mL (0-79) H 04/07/25 08:16 Total Protein 7.8 g/dL (6.4-8.2) 04/07/25 08:16 Albumin 2.3 g/dL (3.4-5.0) L 04/07/25 08:16 Globulin 5.5 g/dL (2.5-4.5) H 04/07/25 08:16 Albumin/Globulin Ratio 0.4 Ratio (1.1-2.1) L 04/07/25 08:16 Other Results Comments: Name: NANETTE TSANG [facility]#: [id number] : 1960 Sex: M Location: Order Number(s): [id number] Procedure(s):CHEST CT W/O CON Ordering Physician: Maninder Iniguez Primary Care: Damian Pan Service Date: 04/07/25 Service Time: 08 EXAM: CT chest without contrast HISTORY: Chest pain, shortness of breath, smoker TECHNIQUE: Axial noncontrast images with coronal and sagittal reformats. Dose reduction procedures were used with mA/kv adjusted for body size. This examination is limited due to the lack of intravenous contrast. The examination was performed unenhanced at the sole direction of the ordering caregiver. Radiology was afforded no input into the method of performance of this examination. COMPARISON: No prior chest CT; no screening plain chest x-ray obtained. The reason for this omission is unclear. FINDINGS: Abnormal lymphadenopathy is incidentally noted underlying the right sternocleidomastoid muscle. Nodes measure 1.5 by 0.9 cm and 1.3 by 0.94 cm. These could be reactive, infectious, granulomatous, or neoplastic in origin. Examination of the mediastinum demonstrated no evidence for abnormal mediastinal or abnormal hilar adenopathy but only to the limitations of an unenhanced examination. There is mild dilatation of the ascending thoracic aorta maximum AP diameter 4 cm, maximum transverse diameter 4.1 cm. Calcific atherosclerotic changes present in the arch. Arch and descending aorta are normal in caliber. No pleural effusions are identified. No chest wall or axillary abnormality is identified. Those portions of the upper abdominal organs visualized appeared within normal limits to the limitations of an unenhanced examination with the exception of a 2.5 mm nonobstructing right upper pole renal calculus and a very large partially visualized cystic lesion in the left upper quadrant measuring 12 x 13.4 cm. This may represent a very large benign renal cyst however it was only partially visualized. CAVAL FILTER. There is a 50% compression fracture of T6 age indeterminate. There is a mild central compression fracture the superior endplate of T11 of indeterminate age and possibly related to some benign hemangiomatous change in the vertebral body. There is a question of some small lytic lesions in C7, T1 and T2. Findings could indicate metastatic disease or possibly multiple myeloma. Correlation with nuclear medicine bone scan is recommended as is serum protein electrophoresis. Examination of the lung forrester demonstrated pleural-parenchymal thickening in the right lung apex with some blebs present. Lungs are mildly hyperinflated. No alveolar infiltrates, areas of consolidation, peribronchial thickening, or bronchiectasis identified. Best visualized on axial series 3, image 46 and coronal series 6, image 11 is a 7.6 x 8.1 x 5.5 mm noncalcified left upper lobe pulmonary nodule. This could be granulomatous or neoplastic in origin. PET-CT would be of further diagnostic value in excluding malignancy however if PET-CT is negative for malignancy close CT follow-up in 4-6 months will be required as this nodule is at the lower limits for detection with PET. No other noncalcified pulmonary nodules of significance identified. IMPRESSION: Lungs are mildly hyperinflated but without acute pulmonary infiltrates 7.6 x 8.1 x 5.5 mm left upper lobe pulmonary nodule. Neoplasm must be excluded. PET-CT would be of further diagnostic value. However, it should be noted that if PET-CT is negative for malignancy then close CT follow-up with a repeat CT in 4-6 months is recommended as this nodule is at the lower limits for detection with PET-CT. Pulmonary consultation would seem indicated. Mild dilatation of the ascending thoracic aorta maximum AP diameter 4 cm, maximum transverse diameter 4.2 cm Questionable tiny lytic lesions in C7 T1 and T2 for which further evaluation with nuclear medicine bone scan to screen for metastatic disease and serum protein electrophoresis discrete for multiple myeloma should be considered. 2.5 mm nonobstructing right upper pole renal calculus Large left upper quadrant partially visualized cystic lesion possibly a large benign renal cyst. Other etiologies not excluded. Incidental note is made of abnormal mildly enlarged lymph nodes underlying the right sternocleidomastoid muscle in the lower neck. These could be reactive, infectious, granulomatous or neoplastic in origin. THIS IS AN ELECTRONICALLY VERIFIED FINAL REPORT 04/07/2025 9:37 AM - Electronically signed by Igor Tripp MD EKG Rate: 59 [place]: Normal Rhythm: SB ST: Normal Opioid Opioid Risk Tool Age (Emerson box if 16-45): No History of Preadolescent Sexual Abuse: No Total: 0 Total Score Risk Category: Low Risk Copyright: [facility] predicting aberrant behaviors Discharge Plan Diagnosis Discharge Problem: Acute exacerbation of CHF (congestive heart failure), Lung nodule Discharge Plan Patient Disposition: 09 ADMITTED INPATIENT Condition: Stable Prescriptions: No Action famotidine 20 MG tablet 20 mg PO HS Qty: 30 5RF Rx Instructions: ONE TABLET AT BEDTIME atorvastatin 40 MG tablet 40 mg PO HS Qty: 30 5RF Rx Instructions: Take 1 tablet by mouth at bedtime. amlodipine 10 MG tablet 10 mg PO DAILY trazodone 150 MG tablet 150 mg PO HS gabapentin 300 MG capsule 300 mg PO BID oxycodone-acetaminophen 1 TAB tablet 1 tab PO Q6H PRN (Reason: Pain) Qty: 120 0RF Rx Instructions: TAKE ONE TABLET EVERY SIX HOURS NEEDED FOR PAIN tamsulosin 0.4 mg capsule PO pantoprazole 40 mg tablet,delayed release (DR/EC) 40 mg PO QDAY sertraline 50 mg tablet 50 mg PO QDAY Health Concerns: Post Hospitalization: new medications and changes needed to prevent readmission or further decline. Pt educated and given instructions on all concerns. Plan of Treatment: Continue with present treatment and follow up plan. Pt is to keep follow up appointment as instructed and take medications as ordered. Orders to Discharge Patient Discharge Orders: Transfer (Routine); Ordered 04/07/25 Ordered By: Maninder Iniguez Follow ups/Referrals Follow ups/Referrals: Damian Pan [Primary Care Provider, MEDICAL] - 3 days Instructions Stand Alone Forms: Find Help Web Site, Post Hospital Follow Up Care Print Language: SIERRA LEONEAN
[2025-04-07] MEDS ORDERED: CONSULT PHARMACY - POTASSIUM & MAGNESIUM XX SCH (12:37)
[2025-04-07] MEDS ORDERED: MORPHINE SULFATE INJ 2 MG INJ IVP PRN (12:37)
[2025-04-07] MEDS ORDERED: NORCO 5/325 MG TAB PO PRN (12:37)
[2025-04-07] MEDS ORDERED: ZOFRAN INJ 4 MG VIAL IVP PRN (12:37)
[2025-04-07] MEDS ORDERED: ULTRAM PO PRN (12:37)
[2025-04-07] MEDS: MAG-OX TAB PO SCH (13:05)
[2025-04-07] MEDS: K-DUR TAB 20 MEQ PO SCH (13:05)
--- NOTE | 2025-04-07 13:17 | EKG ---
Test Reason : q 6 hrs Blood Pressure : */* mmHG Vent. Rate : 59 BPM Atrial Rate : 59 BPM P-R Int : 140 ms QRS Dur : 84 ms QT Int : 464 ms P-R-T Axes : 36 43 43 degrees QTc Int : 459 ms Sinus bradycardia with premature atrial complexes prominent voltage Otherwise normal ECG When compared with ECG of 07-APR-2025 08:33, premature atrial complexes are now present Confirmed by Cam Seaman MD ([id number]) on 04/08/2025 7:20:16 AM Referred By: Confirmed By: Cam Seaman MD
[2025-04-07 13:34] VITALS: BMI 22.7
[2025-04-07] MEDS: PERCOCET TAB 5/325 MG PO PRN (13:42)
[2025-04-07] MEDS: TYLENOL 325 MG TAB PO PRN (16:51)
[2025-04-07] MEDS: PEPCID TAB 20 MG PO SCH (20:11)
[2025-04-07] MEDS: NEURONTIN CAP 300 MG PO SCH (20:11)
[2025-04-07] MEDS: DESYREL PO SCH (20:11)
[2025-04-07] MEDS: LIPITOR TAB 40 MG PO SCH (20:11)
[2025-04-08 06:23] LABS: MEAN PLATELET VOLUME 7.7 fL (7.4-11.0); RED CELL DISTRIBUTION WIDTH 14.3 % (11.6-16.5)
--- NOTE | 2025-04-08 06:23 | RAD ---
EXAMINATION: CHEST, 1 VIEW HISTORY: CHF EXACERBATION, LUNG NODULE ; HTN, ANXIETY, GERD SX: ORTHO, LEFT LEG, BACK . COMPARISON STUDY: None. TECHNIQUE: Single portable AP view of the chest FINDINGS: Lungs are expanded. Patchy alveolar infiltrates mid and lower lung forrester. [id number] cardiac silhouette enlargement. Normal pulmonary vascular pattern. Bones are intact. IMPRESSION: Patchy infiltrates in both lungs. Cardiac silhouette enlargement. THIS IS AN ELECTRONICALLY VERIFIED FINAL REPORT 04/08/2025 6:19 AM - Electronically signed by Nerissa Benito MD
[2025-04-08 06:33] LABS: COR CA(FOR HYPOALB) 10.7 mg/dL (8.5-10.1); CREATININE 1.36 mg/dL (0.70-1.30); eGFR NON BLACK RACES 56 (>60)
[2025-04-08] MEDS: PROTONIX TAB 40 MG PO SCH (08:38)
[2025-04-08] MEDS: NORVASC TAB 10 MG PO SCH (08:38)
[2025-04-08] MEDS: ZOLOFT PO SCH (08:39)
[2025-04-08] MEDS: FLOMAX PO SCH (08:39)
[2025-04-08] MEDS: LASIX IVP SCH (08:39)
[2025-04-08] MEDS ORDERED: ZITHROMAX INJ 500 MG VIAL 250 MG in NS 250 ML IV 250 ML IV SCH (10:00)
[2025-04-08] MEDS ORDERED: NS 500 ML IV 500 ML IV ONE (11:14)
[2025-04-08] MEDS: NICOTINE PATCH TD SCH (11:20)
[2025-04-08] MEDS: LEVAQUIN PREMIX IV 500 MG 500 MG/100 ML BAG IV SCH (11:20)
[2025-04-08 11:46] VITALS: BP 96/56; RESP 18; TEMP 97.9; O2SAT 97
[2025-04-08] MEDS: NICOTINE PATCH TD ONE (12:01)
[2025-04-08] MEDS: DUONEB 0.5 MG/3 MG (3 mL) NEB SCH (13:09)
[2025-04-08 13:12] VITALS: PULSE 60
[2025-04-08] MEDS ORDERED: PULMICORT NEB TX 0.5 MG NEB SCH (21:00)
--- NOTE | 2025-04-13 10:33 | DR.SSS ---
SHORT STAY SUMMARY Admission Date Date of Admission: 04/07/25 Discharge Date Discharge Date: 04/08/25 Admission Diagnoses Admission Diagnoses: Generalized weakness Dyspnea Lung mass Chest pain Discharge Diagnoses Discharge Diagnoses: Lung mass Pneumonia Generalize weakness Weight loss Chief Complaint Chief Complaint: weakness, SOB, weight loss History of Present Illness History of Present Illness: Patient is a 64y/o male with a PMH of HTN, HLD, GERD presented with increase weakness, chest pain and SOB. He has been having these sx for weeks with gradual worsening. He has also last 8 lbs in 2 weeks. He reports dyspnea with exertion and unable to lie flat. ER work up showed elevated BNP, neg troponin. Chest CT showed KATE pulmonary nodule concerning for neoplasm and other lytic lesions. PET scan is recommended. Patient was started on IV lasix and admitted for further management. Past Medical History Past Medical History: Anxiety, Arthritis, Depression, Dyslipidemia, GERD and Hypertension Additional Medical History: Hx of DVT/PE, Hx GI Ulcer Past Surgical History Surgical History: Ortho Surgery Additional Surgical History: Left and Right Shoulder, Back, Left Leg, IVC Filter Left Leg Allergies Allergies Allergy/AdvReac Type Severity Reaction Status Date / Time codeine Allergy Verified 04/07/25 08:09 Medications Home Medications: codeine Allergy (Verified 04/07/25 08:09) CONTINUE taking the following medications pantoprazole 40 mg tablet,delayed release 40 mg PO QDAY 04/07/25 [History] sertraline 50 mg tablet 50 mg PO QDAY 04/07/25 [History] tamsulosin 0.4 mg capsule 0.4 mg PO DAILY 04/07/25 [History] New Prescriptions albuterol sulfate 90 mcg/actuation aerosol inhaler (Ventolin HFA) 2 puff inhalation Q6H PRN shortness of breath or wheezing #6.7 grams 04/08/25 [Rx] levofloxacin 750 mg tablet 750 mg PO QDAY 5 days #5 tabs 04/08/25 [Rx] Family History Family Medical History: Diabetes Mellitus, [place] and Coronary Artery Disease Social History Does patient currently use any type of tobacco product: Yes Have you used tobacco products in the last 12 months: Yes Type of Tobacco Use: Cigarettes Does any household member use tobacco: Yes Alcohol Use: None Drug Use: None Review of Systems Constitutional: Weakness Eyes: No Symptoms Reported Respiratory: Cough, Shortness of Breath and SOB with Excertion Cardiovascular: No Symptoms Reported Gastrointestinal: No Symptoms Reported Genitourinary: No Symptoms Reported Musculoskeletal: No Symptoms Reported Skin: No Symptoms Reported Neurological: No Symptoms Reported Physical Exam Vital Signs: Last Vital Signs Temp 97.9 F 04/08/25 11:45 Pulse 60 04/08/25 13:09 Resp 18 04/08/25 11:45 BP 96/56 04/08/25 11:45 Pulse Ox 97 04/08/25 13:09 O2 Del Method Room Air 04/08/25 11:45 Oriented: Normal Respiratory: Diminished Throughout Cardiovascular: Normal Auscultation: Bowel Sounds: Normal Palpation: Normal Tenderness: Normal Skin: Normal Musculoskeletal: Normal Psychiatric: Normal Mood Description: Calm Affect: Normal Speech Pattern: Clear and Appropriate Labs Labs: Laboratory Last Values WBC 8.9 X10^3/uL (3.6-10.0) 04/08/25 05:18 RBC 4.50 X10^6/uL (4.7-6.0) L 04/08/25 05:18 Hgb 12.1 g/dL (13.5-18.0) L 04/08/25 05:18 Hct 36.6 % (42.0-54.0) L 04/08/25 05:18 MCV 81.3 fL (80.0-100.0) 04/08/25 05:18 MCH 26.8 pg (27.0-34.0) L 04/08/25 05:18 MCHC 32.9 g/dL (33.0-35.0) L 04/08/25 05:18 RDW 14.3 % (11.6-16.5) 04/08/25 05:18 Plt Count 401 X10^3/uL (150.0-450.0) 04/08/25 05:18 MPV 7.7 fL (7.4-11.0) 04/08/25 05:18 Neut % (Auto) 63.9 % (42.0-75.0) 04/08/25 05:18 Lymph % (Auto) 22.5 % (21.0-51.0) 04/08/25 05:18 Graves % (Auto) 11.4 % (0.0-13.0) 04/08/25 05:18 Eos % (Auto) 1.7 % (0.9-2.9) 04/08/25 05:18 Baso % (Auto) 0.5 % (0.2-1.0) 04/08/25 05:18 Neut # (Auto) 5.7 x10^3/uL (2.2-4.8) H 04/08/25 05:18 Lymph # (Auto) 2.0 X10^3/uL (1.3-2.9) 04/08/25 05:18 Graves # (Auto) 1.0 x10^3/uL (0.3-0.8) H 04/08/25 05:18 Eos # (Auto) 0.2 x10^3/uL (0.0-0.2) 04/08/25 05:18 Baso # (Auto) 0.0 X10^3/uL (0.0-0.1) 04/08/25 05:18 Absolute Nucleated RBC 0.0 /100WBC 04/08/25 05:18 PT 14.4 SECONDS (11.8-14.3) 04/07/25 08:05 INR Target Range - 04/07/25 08:05 INR 1.10 (0.8-1.3) 04/07/25 08:05 APTT 37.6 SECONDS (22.9-36.5) H 04/07/25 08:05 PTT Comment - 04/07/25 08:05 Sodium 138 mmol/L (136-145) 04/08/25 05:18 Corrected Sodium TNP 04/08/25 05:18 Potassium 4.2 mmol/L (3.5-5.1) 04/08/25 05:18 Chloride 102 mmol/L (98-107) 04/08/25 05:18 Carbon Dioxide 29.7 mmol/L (21-32) 04/08/25 05:18 BUN 14 mg/dL (7-18) 04/08/25 05:18 Creatinine 1.36 mg/dL (0.70-1.30) H 04/08/25 05:18 Est GFR (MDRD) Af Amer > 60 (>60) 04/08/25 05:18 Est GFR (MDRD) Non-Af 56 (>60) L 04/08/25 05:18 Glucose 103 mg/dL (65-99) H 04/08/25 05:18 Calcium 9.3 mg/dL (8.5-10.1) 04/08/25 05:18 Corrected Calcium 10.7 mg/dL (8.5-10.1) H 04/08/25 05:18 Magnesium 2.0 mg/dL (2.0-2.9) 04/08/25 05:18 Total Bilirubin 0.30 mg/dL (0.2-1.0) 04/08/25 05:18 AST 20 Units/L (15-37) 04/08/25 05:18 ALT 17 Units/L (12-78) 04/08/25 05:18 Alkaline Phosphatase 161 Units/L (46-116) H 04/08/25 05:18 Creatine Kinase 49 Units/L (39-308) 04/07/25 08:16 Troponin I High Sens 4.5 ng/L (4.0-60.0) 04/07/25 12:54 B-Natriuretic Peptide 538 pg/mL (0-79) H 04/07/25 08:16 Total Protein 7.7 g/dL (6.4-8.2) 04/08/25 05:18 Albumin 2.2 g/dL (3.4-5.0) L 04/08/25 05:18 Globulin 5.5 g/dL (2.5-4.5) H 04/08/25 05:18 Albumin/Globulin Ratio 0.4 Ratio (1.1-2.1) L 04/08/25 05:18 Hospital Course Hospital Course: He was admitted with telemetry. Labs were monitored daily and electrolytes replaced as needed. Patient's dyspnea had improved. Repeat CXR did show patchy bilateral infiltrates. He was started on antibiotics and nebs. Other work up including SPEP and free light chains was ordered. PT/OT was also consulted. He was able to ambulate and tolerating PO intake. He did not require home oxygen. He was stable for discharge and will need to f/u with PCP for further testing including PET scan. Discharge Medications Discharge Medications: Home Medication List pantoprazole 40 mg tablet,delayed release 40 mg PO QDAY 04/07/25 [History] sertraline 50 mg tablet 50 mg PO QDAY 04/07/25 [History] tamsulosin 0.4 mg capsule 0.4 mg PO DAILY 04/07/25 [History] albuterol sulfate 90 mcg/actuation aerosol inhaler (Ventolin HFA) 2 puff inhalation Q6H PRN shortness of breath or wheezing #6.7 grams 04/08/25 [Rx] levofloxacin 750 mg tablet 750 mg PO QDAY 5 days #5 tabs 04/08/25 [Rx] Prescriptions: albuterol sulfate [Ventolin HFA] Subha Aguilera levofloxacin Subha Aguilera Discharge Disposition Discharge Disposition: home Discharge Plan Discharge Plan Patient Disposition: HOME, SELF-CARE Condition: Stable Health Concerns: Post Hospitalization: new medications and changes needed to prevent readmission or further decline. Pt educated and given instructions on all concerns. Care Plan Goals: Problem: Fluid Volume Overload Goal: Maintain/Improved Adequate hydration. Instructions: Follow provided instructions. Follow up with primary physician as directed. Contact primary care physician or report to the closest Emergency Room if condition worsens. Plan of Treatment: Continue with present treatment and follow up plan. Pt is to keep follow up appointment as instructed and take medications as ordered. Assessment: No distress noted. Prescription drug monitoring program results: PDMP reviewed and no concerns identified Prescriptions: New albuterol sulfate [Ventolin HFA] 90 mcg/actuation HFA aerosol inhaler 2 puff inhalation Q6H PRN (Reason: shortness of breath or wheezing) Qty: 6.7 0RF Continued famotidine 20 MG tablet 20 mg PO HS Qty: 30 5RF Rx Instructions: ONE TABLET AT BEDTIME atorvastatin 40 MG tablet 40 mg PO HS Qty: 30 5RF Rx Instructions: Take 1 tablet by mouth at bedtime. amlodipine 10 MG tablet 10 mg PO DAILY trazodone 150 MG tablet 150 mg PO HS gabapentin 300 MG capsule 300 mg PO BID oxycodone-acetaminophen 1 TAB tablet 1 tab PO Q6H PRN (Reason: Pain) Qty: 120 0RF Rx Instructions: TAKE ONE TABLET EVERY SIX HOURS NEEDED FOR PAIN tamsulosin 0.4 mg capsule 0.4 mg PO DAILY pantoprazole 40 mg tablet,delayed release (DR/EC) 40 mg PO QDAY sertraline 50 mg tablet 50 mg PO QDAY Orders to Discharge Patient Discharge Orders: Discharge (Routine); Ordered 04/08/25 Ordered By: Subha Aguilera Follow ups/Referrals Follow ups/Referrals: Damian Pan [Primary Care Provider, MEDICAL] - 04/09/25 9:45 am Instructions Instructions: Health Risks of Smoking, Heart Failure: Self-Care, Hypertension, Adult, [id number], Lung Nodule: What to Know, Steps to Quit Smoking Activity Restrictions/Additional Instructions: Follow up with Dr. Pan on 04/09/25@9:40am for lung nodule. Stand Alone Forms: Find Help Web Site, Post Hospital Follow Up Care Print Language: MAURITIAN
== END 2025-04-08 14:00 | disposition home or self-care (01) ==
LOC: MED/SURG 07:58 → ER 07:58 → MED/SURG 11:56
PROVIDERS: ADMIT Internal Medicine; ATTEND Internal Medicine
DX: I11.0 Hypertensive heart disease with heart failure; K21.9 Gastro-esophageal reflux disease without esophagitis; R07.89 Other chest pain; I50.9 Heart failure, unspecified; R79.1 Abnormal coagulation profile; Z68.23 Body mass index [BMI] 23.0-23.9, adult; R53.1 Weakness; R26.81 Unsteadiness on feet; R91.1 Solitary pulmonary nodule; E87.1 Hypo-osmolality and hyponatremia; N20.0 Calculus of kidney; Z72.0 Tobacco use; R00.1 Bradycardia, unspecified; E83.42 Hypomagnesemia; J18.9 Pneumonia, unspecified organism; R06.00 Dyspnea, unspecified; I35.8 Other nonrheumatic aortic valve disorders; R19.02 Left upper quadrant abdominal swelling, mass and lump; R63.4 Abnormal weight loss; D64.9 Anemia, unspecified; R06.02 Shortness of breath; R59.1 Generalized enlarged lymph nodes; R73.9 Hyperglycemia, unspecified